=== PATIENT | female | born 1955 | race Caucasian/White ===

== ENCOUNTER 2018-01-26 11:31 | Observation (INO) | payer MEDICARE ==
[~2018-01-26] VITALS: Ht 160 cm; Wt 76.2 kg
[~2018-01-26 11:31] MED LIST: CEPH-368 PO; OXYC-302 PO
[2018-01-26] MEDS ORDERED: ASPIRIN 81 MG TABLET CHEW ONE (11:58)
[2018-01-26] MEDS ORDERED: ASPIRIN 81 MG TABLET CHEW PO ONE (12:00)
[2018-01-26 12:18] LABS: BASOPHILS # (AUTO) 0.03 x10^3/uL (0-0.1); BASOPHILS % (AUTO) 1 % (0-1); EOSINOPHILS # (AUTO) 0.22 x10^3/uL (0-0.4); EOSINOPHILS % (AUTO) 4 % (1-7); LYMPHOCYTES % (AUTO) 32 % (22-44); MD NO; MEAN CORPUSCULAR HEMOGLOBIN 33.4 pg (27.0-34.8); MEAN CORPUSCULAR VOLUME 98.1 fL (80-100); MEAN PLATELET VOLUME 9.2 fL (7.4-10.4); MONOCYTES # (AUTO) 0.56 x10^3/uL (0.2-0.8); MONOCYTES % (AUTO) 9 % (2-9); NEUTROPHILS % (AUTO) 55 % (42-75); PLATELET COUNT 256 x10^3/uL (130-400); RED BLOOD COUNT 4.13 x10^6/uL (3.82-5.3)
[2018-01-26 12:22] LABS: ALANINE AMINOTRANSFERASE 101 U/L (12-78); ALBUMIN 3.5 g/dL (3.4-5.0); ANION GAP 8 mmol/L (5-15); CALCIUM 8.9 mg/dL (8.5-10.1); CHLORIDE 105 mmol/L (98-107)
[2018-01-26 12:28] LABS: ALKALINE PHOSPHATASE 127 U/L (45-117); BILIRUBIN,TOTAL 0.8 mg/dL (0.2-1.0); CREATININE 0.74 mg/dL (0.55-1.02); TOTAL PROTEIN 7.1 g/dL (6.4-8.2); TROPONIN I < 0.015 ng/mL (0.000-0.045)
[2018-01-26] MEDS ORDERED: SODIUM CHLORIDE FLUSH 10ML SYR IVF PRN (13:00)
[2018-01-26] MEDS ORDERED: BISACODYL 10 MG SUPP PR PRN (13:30)
[2018-01-26] MEDS ORDERED: ONDANSETRON ODT 4 MG PO PRN (13:30)
[2018-01-26] MEDS ORDERED: DOCUSATE 100 MG CAPSULE PO PRN (13:30)
[2018-01-26] MEDS ORDERED: ENALAPRILAT 1.25 MG/ML, 2ML IVPush PRN (13:30)
[2018-01-26] MEDS ORDERED: ACETAMINOPHEN 325 MG TABLET PO PRN (13:30)
[2018-01-26] MEDS ORDERED: LABETALOL 5MG/ML, 20ML IVPush PRN (13:30)
[2018-01-26] MEDS ORDERED: ONDANSETRON 2MG/ML, 2ML IVPush PRN (13:30)
[2018-01-26] MEDS ORDERED: CARB1TAB20 PO (13:48)
[2018-01-26] MEDS ORDERED: BUPR100T7 PO (13:48)
[2018-01-26] MEDS ORDERED: BENA1TAB9 PO (13:48)
[2018-01-26] MEDS ORDERED: LORA-702 PO (15:17)
[2018-01-26] MEDS ORDERED: MULT-717 PO (15:17)
[2018-01-26] MEDS ORDERED: BUPR-173 PO (15:17)
[2018-01-26] MEDS ORDERED: CARB1TAB22 PO (15:17)
[2018-01-26] MEDS ORDERED: TRAZ-136 PO (15:17)
[2018-01-26] MEDS ORDERED: MV,C400T2 PO (15:17)
[2018-01-26] MEDS ORDERED: ASPI-496 PO (15:17)
[2018-01-26] MEDS ORDERED: ACYC-114 PO (15:17)
[2018-01-26] MEDS ORDERED: CALC-47 PO (15:17)
[2018-01-26] MEDS ORDERED: EPIN5DRO10 EACHEYE (15:17)
[2018-01-26] MEDS ORDERED: ASCO500T59 PO (15:20)
[2018-01-26] MEDS ORDERED: ESOM20CA PO (15:20)
[2018-01-26] MEDS ORDERED: MELA3TAB62 PO (15:20)
[2018-01-26] MEDS ORDERED: CYAN500T2 PO (15:20)
[2018-01-26 15:29] VITALS: BP 168/82
[2018-01-26] MEDS: ENOXAPARIN 40 MG/0.4 ML SQ SCH (17:33)
[2018-01-26 18:16] LABS: TROPONIN I < 0.015 ng/mL (0.000-0.045)
[2018-01-26 19:37] VITALS: BP 152/73
[2018-01-26] MEDS ORDERED: CARBIDOPA/LEVODOPA 25 MG/100 MG TABLET PO ONE (23:00)
[2018-01-27 00:57] LABS: TROPONIN I < 0.015 ng/mL (0.000-0.045)
[2018-01-27 01:52] VITALS: BP 126/72
[2018-01-27 05:20] LABS: BASOPHILS # (AUTO) 0.04 x10^3/uL (0-0.1); BASOPHILS % (AUTO) 1 % (0-1); EOSINOPHILS % (AUTO) 5 % (1-7); LYMPHOCYTES # (AUTO) 2.33 x10^3/uL (1-3.4); LYMPHOCYTES % (AUTO) 40 % (22-44); MD NO; MEAN CORPUSCULAR HEMOGLOBIN 33.5 pg (27.0-34.8); MEAN CORPUSCULAR VOLUME 98.7 fL (80-100); MEAN PLATELET VOLUME 9.4 fL (7.4-10.4); MONOCYTES # (AUTO) 0.56 x10^3/uL (0.2-0.8); MONOCYTES % (AUTO) 10 % (2-9); NEUTROPHILS % (AUTO) 45 % (42-75); PLATELET COUNT 217 x10^3/uL (130-400); RED BLOOD COUNT 3.85 x10^6/uL (3.82-5.3); RED CELL DISTRIBUTION WIDTH 13.9 % (9.6-15.2)
[2018-01-27 05:35] LABS: ALBUMIN 2.9 g/dL (3.4-5.0); ANION GAP 6 mmol/L (5-15); CALCIUM 8.3 mg/dL (8.5-10.1); CHLORIDE 107 mmol/L (98-107)
[2018-01-27 05:44] LABS: ALANINE AMINOTRANSFERASE 19 U/L (12-78); ALKALINE PHOSPHATASE 107 U/L (45-117); BILIRUBIN,TOTAL 0.6 mg/dL (0.2-1.0); CHOL/HDL RATIO 3.1; CHOLESTEROL, TOTAL 116 mg/dL (140-239); CREATININE 0.82 mg/dL (0.55-1.02); HDL CHOL % 33 % (28-40); HDL CHOLESTEROL (DIRECT) 38 mg/dL (40-60); LDL CHOLESTEROL,CALCULATED 30 mg/dL (54-169); LDL/HDL RATIO 0.8 (0.5-3.0); TOTAL PROTEIN 6.3 g/dL (6.4-8.2); TRIGLYCERIDES 239 mg/dL (50-200); VLDL CHOLESTEROL 48 mg/dL (0-25)
[2018-01-27 07:34] VITALS: BP 140/84
[2018-01-27] MEDS ORDERED: SENNA/DOCUSATE TABLET PO SCH (09:00)
[2018-01-27] MEDS ORDERED: REGADENOSON 0.4 MG/5 ML SYRINGE ONE (09:03)
[2018-01-27 14:20] VITALS: BP 166/81
[2018-01-27] MEDS ORDERED: HYDROCHLOROTHIAZIDE 25 MG TABLET PO SCH (15:30)
[2018-01-27] MEDS ORDERED: PANTOPROZOLE 40MG TABLET PO SCH (15:30)
[2018-01-27] MEDS ORDERED: BENAZEPRIL 10 MG TABLET PO SCH (15:30)
[2018-01-27] MEDS ORDERED: BENAZEPRIL 5 MG TABLET ONE ×2 (15:37)
[2018-01-27] MEDS: ENOXAPARIN 40 MG/0.4 ML SQ SCH (15:40)
[2018-01-27] MEDS ORDERED: CARBIDOPA/LEVODOPA 25 MG/100 MG TABLET PO ONE (21:00)
== END 2018-01-27 17:00 | disposition home or self-care (01) ==
LOC: ED 12:56 → EDIP 13:25 → INTOOBSV 13:25 → 5SO 13:56 → DCLOUNGE 01-27 16:42
PROVIDERS: ADMIT Hospitalist; ATTEND Family Medicine
DX: R07.89 Other chest pain (principal); I10 Essential (primary) hypertension; G25.81 Restless legs syndrome; I07.1 Rheumatic tricuspid insufficiency; K21.9 Gastro-esophageal reflux disease without esophagitis; Z79.82 Long term (current) use of aspirin; Z82.0 Family history of epilepsy and other diseases of the nervous system; Z82.49 Family history of ischemic heart disease and other diseases of the circulatory system; Z87.891 Personal history of nicotine dependence
CPT/HCPCS: 36415; 71045; 78452; 80053; 80061; 83735; 84100; 84443; 84484; 85025; 93005; 93017; 93306; 96372; 99285; A9502; C9898; G0378; J1650; J2785

== ENCOUNTER → 2018-04-28 | Outpatient (CLI) | payer MEDICARE ==
[~2018-04-28] MED LIST changes: +ACYC-114 PO; +ASCO500T59 PO; +ASPI-496 PO; +BENA1TAB9 PO; +BUPR-173 PO; +BUPR100T7 PO; +CALC-47 PO; +CARB1TAB20 PO; +CARB1TAB22 PO; +CYAN500T2 PO; +EPIN5DRO10 EACHEYE; +ESOM20CA PO; +GADOBUTROL 7.5 MMOL/7.5 ML PFS ONE; +LORA-702 PO; +MELA3TAB62 PO; +MULT-717 PO; +MV,C400T2 PO; +TRAZ50TA66 PO
[2018-04-28 15:26] LABS: CREATININE 0.71 mg/dL (0.55-1.02)
== END | disposition home or self-care (01) ==
LOC: RAD 14:27
PROVIDERS: ATTEND Internal Medicine
DX: M85.88 Other specified disorders of bone density and structure, other site (principal); M89.9 Disorder of bone, unspecified
CPT/HCPCS: 36415; 71552; 82565; A9585

== ENCOUNTER 2020-09-02 12:30 | Emergency (ER) | payer MEDICARE ==
[~2020-09-02] VITALS: Ht 160 cm; Wt 80.1 kg
[~2020-09-02 12:30] MED LIST changes: -ACYC-114 PO; +ACYC-40 PO; -CARB1TAB20 PO; +CARB1TAB33 PO; +CEFT2PIG2 IVPush; -CYAN500T2 PO; +CYAN500T7 PO; +DIPH50CA PO; -GADOBUTROL 7.5 MMOL/7.5 ML PFS ONE; +HYDR12.517 PO; -OXYC-302 PO; +OXYC1TAB14 PO; +PRAM0.255 PO
--- NOTE | 2020-09-02 13:14 | NUR ---
[employer]CCUP[employer] THERAPIST: PT TO ROOM FROM LOBBY
--- NOTE | 2020-09-02 13:21 | NUR ---
Report from Mayra Merida
[2020-09-02 13:37] LABS: ALBUMIN 3.5 g/dL (3.4-5.0); ANION GAP 6 mmol/L (5-15); CHLORIDE 108 mmol/L (98-107); CREATININE 0.69 mg/dL (0.55-1.02)
[2020-09-02 13:38] LABS: BASOPHILS % (AUTO) 1 % (0-1); EOSINOPHILS % (AUTO) 4 % (1-7); LYMPHOCYTES % (AUTO) 35 % (22-44); MEAN CORPUSCULAR HEMOGLOBIN 32.6 pg (27.0-34.8); MEAN CORPUSCULAR HGB CONC 33.6 g/dL (32.4-35.8); MEAN PLATELET VOLUME 9.5 fL (7.4-10.4); MONOCYTES % (AUTO) 10 % (2-9); NEUTROPHILS % (AUTO) 51 % (42-75); PLATELET COUNT 223 x10^3/uL (130-400); RED BLOOD COUNT 4.41 x10^6/uL (3.82-5.3); RED CELL DISTRIBUTION WIDTH 13.8 % (9.6-15.2)
[2020-09-02 13:39] LABS: MD NO
--- NOTE | 2020-09-02 14:37 | NUR ---
Dr. Campos at bedside to discuss POC with pt.
[2020-09-02 14:39] VITALS: BP 157/87
--- NOTE | 2020-09-02 14:39 | NUR ---
Pt resting in bed, denies other needs.
== END 2020-09-02 15:16 | disposition home or self-care (01) ==
LOC: ED 13:39
DX: I10 Essential (primary) hypertension (principal); K21.9 Gastro-esophageal reflux disease without esophagitis
CPT/HCPCS: 36415; 80048; 82040; 85025; 93005; 96372; 99285

== ENCOUNTER → 2020-09-24 | Outpatient (CLI) | payer MEDICARE ==
[2020-09-24 10:23] LABS: BASOPHILS % (AUTO) 1 % (0-1); EOSINOPHILS % (AUTO) 4 % (1-7); HCT (SEDRATE) 39.1 % (34.6-47.8); LYMPHOCYTES % (AUTO) 26 % (22-44); MEAN CORPUSCULAR HEMOGLOBIN 32.7 pg (27.0-34.8); MEAN CORPUSCULAR HGB CONC 33.3 g/dL (32.4-35.8); MEAN PLATELET VOLUME 9.1 fL (7.4-10.4); MONOCYTES % (AUTO) 10 % (2-9); NEUTROPHILS % (AUTO) 60 % (42-75); PLATELET COUNT 241 x10^3/uL (130-400); RED BLOOD COUNT 4.04 x10^6/uL (3.82-5.3)
[2020-09-24 10:26] LABS: MD NO
[2020-09-24 10:29] LABS: ALANINE AMINOTRANSFERASE 34 U/L (12-78); ALBUMIN 3.5 g/dL (3.4-5.0); ANION GAP 3 mmol/L (5-15); CALCIUM 8.8 mg/dL (8.5-10.1); CHLORIDE 106 mmol/L (98-107); CREATININE 0.69 mg/dL (0.55-1.02)
[2020-09-24 10:31] LABS: ALKALINE PHOSPHATASE 73 U/L (45-117); BILIRUBIN,TOTAL 0.3 mg/dL (0.2-1.0); TOTAL PROTEIN 6.9 g/dL (6.4-8.2)
== END | disposition home or self-care (01) ==
LOC: LAB 09:42
PROVIDERS: ATTEND Internal Medicine Infectious Disease
DX: K80.42 Calculus of bile duct with acute cholecystitis without obstruction (principal); R79.82 Elevated C-reactive protein (CRP); R70.0 Elevated erythrocyte sedimentation rate
CPT/HCPCS: 36415; 80053; 85025; 85651; 86140